=== PATIENT | female | born 1995 | race Caucasian/White ===

== ENCOUNTER 2018-05-02 19:19 | Emergency (ER) | payer SELFPAY ==
--- NOTE | 2018-05-02 19:39 | UC ---
Complaint Female HPI - HPI Summary HPI Summary: 22 y/o female presents to the urgent care c/o urinary frequency and burning on urination since this morning. Pt report mild pelvic pressure. Nitin w/ urination is 3/10. Pt has been drinking water, but has not taking anything to alleviate symptoms. LMP:02/2018 on OCP. Pt denies lower back pain, flank pain, abdominal pain, fever, N/V/D, vaginal discharge or Hx of STD's - History Of Current Complaint Stated Complaint: POSS UTI Time Seen by Provider: 05/02/18 19:36 Hx Obtained From: Patient Onset/Duration: Gradual Onset, Lasting Hours - 12 hrs, Still Present Timing: Intermittent Severity Initially: Mild Severity Currently: Mild Pain Intensity: 3 Pain Scale Used: 0-10 Numeric Character: Burning Aggravating Factor(s): Urination Associated Signs And Symptoms: Positive: Negative. Negative: Fever, Back Pain, Vaginal Bleeding/Discharge, Vaginal Discharge, Genital Swelling, Genital Blisters - Risk Factors Ectopic Risk Factor: Negative - Allergies/Home Medications Allergies/Adverse Reactions: Allergies Allergy/AdvReac Type Severity Reaction Status Date / Time No Known Allergies Allergy Verified 05/02/18 19:40 Home Medications: Home Medications Loratadine [Claritin 10 MG CAP] 10 mg PO DAILY 05/02/18 [History Confirmed 05/02] PMH/Surg Hx/FS Hx/Imm Hx Previously Healthy: Yes - Pt denies PMHX - Family History Known Family History: Positive: None - Pt denies FMHX - Social History Occupation: Employed Full-time Lives: With Family - Immunization History Vaccination Up to Date: Yes Review of Systems Constitutional: Negative Skin: Negative Eyes: Negative ENT: Negative Respiratory: Negative Cardiovascular: Negative Gastrointestinal: Other - pelvic pressure Genitourinary: Dysuria, Frequency, Urgency Motor: Negative Neurovascular: Negative Musculoskeletal: Negative Neurological: Negative Psychological: Negative Is Patient Immunocompromised?: No All Other Systems Reviewed And Are Negative: Yes Physical Exam - Summary Physical Exam Summary: VITAL SIGNS: Reviewed. GENERAL: Patient is a well developed and nourished female who is sitting comfortable in the examining table. Patient is not in any acute respiratory distress. HEAD AND FACE: No signs of trauma. No ecchymosis, hematomas or skull depressions. No sinus tenderness. EYES: PERRLA, EOMI x 2, No injected conjunctiva, clear watery eyes, no nystagmus. No photophobia. EARS: Hearing grossly intact. Ear canals and tympanic membranes are within normal limits. MOUTH: pharynx with no erythema, no exudates,no palatal petechiae. no B/L tonsillar enlargement Uvula in midline. NECK: Supple, trachea is midline, no lymphadenopathy, no JVD, no carotid bruit, no c-spine tenderness, neck with full ROM. CHEST: Symmetric, no tenderness at palpation LUNGS: Clear to auscultation bilaterally. No wheezing or crackles. CVS: Regular rate and rhythm, S1 and S2 present, no murmurs or gallops appreciated. ABDOMEN: Soft, non-tender. No signs of distention. No rebound no guarding, and no masses palpated. Bowel sounds are normal. BACK:no scoliosis or lesions, non tender to palpation, No B/L CVA tenderness EXTREMITIES: FROM in all major joints, no edema, no cyanosis or clubbing. NEURO: Alert and oriented x 3. No acute neurological deficits. Speech is normal and follows commands. SKIN: Dry and warm Triage Information Reviewed: Yes Complaint Female Dx - Course Course Of Treatment: 22 y/o female presents to the urgent care c/o urinary frequency and burning on urination since this morning. Pt report mild pelvic pressure. Nitin w/ urination is 3/10. Pt has been drinking water, but has not taking anything to alleviate symptoms. LMP:02/2018 on OCP. Pt denies lower back pain, flank pain, abdominal pain, fever, N/V/D, vaginal discharge or Hx of STD' s. Hx obtained. PE: WNL. UA ordered. UA results: Blood 3+, Leukoesterase 3+. Pt Rx Macrobid 100mg PO x 7 days. Pyridium 100mg PO TID x 2 days. first dose given at the clinic tonight. Advised to increase fluid intake. Urine sent for culture if any abnormality Pt will be notified for further treatment. Pt advised If symptoms do not improve to return to the urgent care or f/u with PCP. Pt's BP is elevated today advised to decrease salt in diet, monitor BP and f/u with PCP for further management. Pt understood and agreed. Left the clinic ambulating. - Differential Dx/Diagnosis Differential Diagnosis/HQI/PQRI: Pelvic Inflammatory Disease, , Renal Colic, Sexually Transmitted Disease, Ureteral Stone, Urinary Tract Infection Provider Diagnoses: 1- Urinary tract infection. 2- Dysuria. 3- Elevated BP w/ o Hx of HTN Discharge - Sign-Out/Discharge Documenting (check all that apply): Discharge/Admit/Transfer - D/C home - Discharge Plan Condition: Stable Disposition: HOME Prescriptions: Nitrofurantoin Monohyd/M-Cryst [Macrobid 100 mg Capsule] 100 mg PO BID #13 cap Phenazopyridine TAB* [Pyridium 100 mg TAB*] 100 mg PO TID #5 tab Patient Education Materials: Urinary Tract Infection in Women (ED), Low-Sodium Diet (ED) Referrals: [facility] [Outside] - 3 Days Additional Instructions: 1- Please take Macrobid 100mg PO x 7 days. Pyridium 100 mg PO TID x 2 days to alleviate urinary symptoms. Increase increase fluid intake. drink cranberry juice. first dose given tonight 2-Urine sent for culture if any abnormality, you will be notified for further treatment. 3-If symptoms do not improve please return to the urgent care or f/u with her PCP in 2-3 days for further management 4-Your BP is elevated today. please decrease salt in your diet, monitor BP and if it continues to be elevated please f/u with your PCP for further management - Billing Disposition and Condition Condition: STABLE Disposition: Home
[2018-05-02 19:40] VITALS: BP 132/91
[2018-05-02] MEDS ORDERED: Nitrofurantoin Macrocrystals* 50 MG CAP PO ONE (19:59)
[2018-05-02] MEDS ORDERED: Phenazopyridine TAB* 100 MG PO ONE (20:00)
== END 2018-05-02 20:10 | disposition home or self-care (01) ==
LOC: UCEAST 19:19
DX: N39.0 Urinary tract infection, site not specified (principal); R30.0 Dysuria; R03.0 Elevated blood-pressure reading, without diagnosis of hypertension
CPT/HCPCS: 81003; 87077; 87086; 87186; 99202; A9270-GY; G0463